=== PATIENT | male | born 1955 | race Caucasian/White ===

== ENCOUNTER → 2017-04-18 | Outpatient (CLI) | payer BC ==
[~2017-04-18] MED LIST: BACTRIM DS 8001 TA1 PO; ERYTHROMYCIN OPH1 GM OPH; VANCOMYCIN HYDRO1 GM; VICODIN ES 7501 TAB PO
== END | disposition home or self-care (01) ==
LOC: CARD 01:21
DX: I48.91 Unspecified atrial fibrillation (principal); Z86.79 Personal history of other diseases of the circulatory system

== ENCOUNTER → 2017-11-27 | Outpatient (CLI) | payer BC | END | disposition home or self-care (01) | LOC: LAB 08:22 | DX: R91.8 Other nonspecific abnormal finding of lung field (principal) ==

== ENCOUNTER → 2018-09-05 | Outpatient (CLI) | payer BC ==
[2018-09-05 17:42] LABS: BASO # 0.1 10*3/uL (0.0-0.1); BASO % 0.4 % (0.0-1.0); EOS % 0.1 % (1.0-4.0); HEMATOCRIT 46.8 % (42.0-52.0); HEMOGLOBIN 15.9 g/dl (14.0-18.0); LYMPH # 1.9 10*3/uL (1.3-4.4); LYMPH % 13.6 % (27.0-41.0); MEAN CELL VOLUME 97.5 fl (80.0-94.0); MEAN CORPUSCULAR HGB 33.1 pg (27.0-31.0); MEAN PLATELET VOLUME 9.9 fl (9.6-12.3); MONO # 1.1 10*3/uL (0.1-1.0); MONO % 8.2 % (3.0-9.0); NEUT # 10.8 10*3/uL (2.3-7.9); NEUT % 77.1 % (47.0-73.0); PLATELET COUNT AUTOMATED 272 10*3/uL (130-400); RED CELL DISTRI WIDTH 13.2 % (0-14.5)
[2018-09-05 18:19] LABS: ALKALINE PHOSPHATASE 84 U/L (45-117); BUN 14 mg/dl (7-24); CHLORIDE 99 mmol/L (98-107); CREATININE 0.94 mg/dL (0.70-1.30); POTASSIUM 3.7 mmol/L (3.5-5.1); SGOT/AST 35 IU/L (3-35); SGPT/ALT 51 U/L (12-78); SODIUM 133 mmol/L (136-145)
== END | disposition home or self-care (01) ==
LOC: US 16:47
PROVIDERS: Urology
DX: N28.89 Other specified disorders of kidney and ureter (principal); D40.0 Neoplasm of uncertain behavior of prostate; I10 Essential (primary) hypertension